=== PATIENT | female | born 1985 | race Two or more races ===

== ENCOUNTER 2024-05-04 15:30 | Emergency (ER) | payer MEDICAID, OTHER ==
[~2024-05-04] VITALS: Ht 167.6 cm; Wt 95.9 kg
[2024-05-04 17:17] VITALS: BP 137/73; PULSE 102; RESP 16; TEMP 98.4; O2SAT 97
== END 2024-05-04 17:30 | disposition home or self-care (01) ==
LOC: ER 15:30
DX: Z00.00 Encounter for general adult medical examination without abnormal findings (principal); S61.451D Open bite of right hand, subsequent encounter; W54.0XXD Bitten by dog, subsequent encounter